=== PATIENT | female | born 1955 | race African-American/Black ===

== ENCOUNTER 2018-12-11 21:04 | Emergency (ER) | payer OTHER ==
[~2018-12-11] VITALS: Ht 175.3 cm; Wt 59.0 kg
[~2018-12-11 21:04] MED LIST: ASCO120G2 MC; FERR-71 MT; FOLI0.4T2 MT; FURO20TA4 MT; LACT1CAP68 MT; MULT-1146 MT; NITR0.4T49 SL; PANT40TA4 PO
[2018-12-11] MEDS ORDERED: DIPHENHYDRAMINE 50MG/ML VIAL IV ONE (23:30)
[2018-12-11 23:32] LABS: BASOPHILS % 1.5 % (0.0-2.0); EOSINOPHILS % 0.9 % (0.0-5.0); HEMATOCRIT. 42.3 % (36.0-48.0); HEMOGLOBIN. 13.6 g/dL (12.0-16.0); LYMPHOCYTES % 26.9 % (20.0-50.0); MEAN CORPUSCULAR VOLUME 87.4 fL (81.0-99.0); MONOCYTES % 8.9 % (2.0-8.0); NEUTROPHILS % 61.8 % (40.0-76.0); PLATELET 163 x1000/uL (130-400); RED BLOOD CELL COUNT 4.84 mill/uL (4.2-5.4); RED CELL DISTRIBUTION WIDTH 15.1 % (11.6-14.6)
[2018-12-11 23:42] LABS: CHLORIDE 103 mEq/L (98-107)
[2018-12-11 23:43] LABS: INR 1.3; PARTIAL THROMBOPLASTIN TIME 30.6 sec (23.4-31.0); PROTHROMBIN TIME 13.1 sec (9.6-11.0)
[2018-12-12] MEDS ORDERED: FUROSEMIDE 20MG/2ML VIAL IVP ONE (02:45)
[2018-12-12 05:04] VITALS: BP 93/63
== END 2018-12-12 05:06 | disposition short-term general hospital (02) ==
LOC: ER 22:06 → CANBEDREQ 12-12 06:06
DX: I50.9 Heart failure, unspecified (principal); I25.2 Old myocardial infarction; I48.91 Unspecified atrial fibrillation; K21.9 Gastro-esophageal reflux disease without esophagitis; Z86.718 Personal history of other venous thrombosis and embolism; Z87.891 Personal history of nicotine dependence
CPT/HCPCS: 36415; 71045; 80053; 83880; 84484; 85025; 85610; 85730; 93005; 96374; 99285; J1940

== ENCOUNTER 2019-03-12 11:45 | Inpatient (IN) | payer MEDICARE, OTHER ==
[~2019-03-12] VITALS: Ht 162.6 cm; Wt 58.5 kg
[2019-03-12] VITALS (34 sets, daily range): BP systolic 93–113; BP diastolic 64–79
[2019-03-12] MEDS ORDERED: SODIUM CHLORIDE 0.9% 1,000 ML IV ONE (11:48)
[2019-03-12] MEDS ORDERED: ALBUTEROL (0.083%) 2.5MG/3ML NEB HHN STA (11:59)
[2019-03-12] MEDS ORDERED: IPRATROPIUM BROMIDE (0.02%) 0.5MG/2.5ML NEB HHN STA (11:59)
[2019-03-12] MEDS ORDERED: METHYLPREDNISOLONE SOD SUCC 125 MG/2 ML VIAL IV STA (11:59)
[2019-03-12] MEDS ORDERED: LEVOFLOXACIN 250MG PREMIX 50 ML IV ONE (12:00)
[2019-03-12] MEDS ORDERED: MAGNESIUM 2 G PREMIX 50 ML IV ONE (12:00)
[2019-03-12 12:29] LABS: HEMATOCRIT. 35.2 % (36.0-48.0); HEMOGLOBIN. 11.2 g/dL (12.0-16.0); MEAN CORPUSCULAR HEMOGLOBIN 26.5 pg (28.0-32.0); MEAN CORPUSCULAR VOLUME 83.4 fL (81.0-99.0); MEAN PLATELET VOLUME 10.8 fl (7.4-10.4); PLATELET 216 x1000/uL (130-400); RED BLOOD CELL COUNT 4.22 mill/uL (4.2-5.4); RED CELL DISTRIBUTION WIDTH 24.8 % (11.6-14.6)
[2019-03-12] MEDS ORDERED: PIPERACILLIN/TAZ 3.375G PREMIX 50 ML IV ONE (12:30)
[2019-03-12] MEDS ORDERED: ETOMIDATE 2MG/ML 10ML VIAL IV ONE (12:30)
[2019-03-12] MEDS ORDERED: VANCOMYCIN 1 G PREMIX 200 ML IV ONE (12:30)
[2019-03-12] MEDS ORDERED: NOREPINEPHRINE 4 MG in DEXT 5% WATER 246 ML IV ONE (12:30)
[2019-03-12] MEDS ORDERED: MIDAZOLAM HCL 50 MG in DEXTROSE 5% WATER 40 ML IV ONE (12:30)
[2019-03-12] MEDS ORDERED: SODIUM CHLORIDE 0.9% 1000ML BAG (SEPSIS BOLUS) IV ONE (12:30)
[2019-03-12] MEDS ORDERED: SUCCINYLCHOLINE CHLORIDE 200MG/10ML IV ONE (12:30)
[2019-03-12 12:34] LABS: CHLORIDE 102 mEq/L (98-107)
[2019-03-12 12:35] LABS: INR 1.2; PROTHROMBIN TIME 12.8 sec (9.6-11.0)
[2019-03-12 12:38] LABS: ETHANOL BLOOD < 10 mg/dL
[2019-03-12] MEDS ORDERED: NOREPINEPHRINE 4MG/250ML PMX 250 ML IV ONE (12:41)
[2019-03-12 12:42] LABS: CLARITY URINE TURBID (CLEAR); COLOR URINE DARK YELLOW (YELLOW); KETONES URINE NEGATIVE (NEGATIVE); LEUKOCYTE ESTERASE URINE 3+ (NEGATIVE); NITRITE URINE NEGATIVE (NEGATIVE); OCCULT BLOOD URINE 2+ (NEGATIVE); PROTEIN URINE 2+ (NEGATIVE); SPECIFIC GRAVITY URINE 1.017 (1.005-1.030)
[2019-03-12 12:58] LABS: BG BASE EXCESS -5.4 mmol/L (-2.0-2.0); BG CARBOXYHEMOGLOBIN 0.6 % (0.5-1.5); BG DEOXYHEMOGLOBIN 0.1 % (0.0-5.0); BG FRACTION INSPIRED OXYGEN 100; BG HCO3 ACT 15.7 mmol/L (22.0-26.0); BG METHEMOGLOBIN 0.3 % (0.0-1.5); BG OXYGEN SATURATION 99.9 % (92.0-98.5); BG PCO2 19.9 mmHg (35.0-45.0); BG PH 7.516 (7.350-7.450); BG PO2 542.6 mmHg (75.0-100.0); BG SAMPLE SITE RIGHT FEMORAL; BG TIDAL VOLUME(mL) 500 mL; BG VENT MODE VENT - A/C; BG VENT RATE 12 set
[2019-03-12 13:10] LABS: *AMPHETAMINES SCREEN URINE NEGATIVE (NEGATIVE); *BARBITURATES SCREEN URINE NEGATIVE (NEGATIVE)
[2019-03-12 13:10] LABS: PLATELET ESTIMATE NORMAL
[2019-03-12 13:11] LABS: *BENZODIAZEPINES SCREEN URINE PRESUMTIVE POSITIVE (NEGATIVE); *COCAINE SCREEN URINE NEGATIVE (NEGATIVE); CANNABINOID URINE SCREEN NEGATIVE (NEGATIVE); METHADONE URINE SCREEN NEGATIVE (NEGATIVE); OPIATES URINE SCREEN PRESUMTIVE POSITIVE (NEGATIVE); PHENCYCLIDINE URINE SCREEN NEGATIVE (NEGATIVE)
[2019-03-12] MEDS ORDERED: FENTANYL CITRATE/PF 50MCG/ML 2ML VIAL IV ONE (13:15)
[2019-03-12] MEDS ORDERED: PROPOFOL 10MG/ML 100ML 100 ML IV SCH (13:45)
[2019-03-12] MEDS ORDERED: FENTANYL CITRATE/PF 500 MCG in SODIUM CHLORIDE 0.9% 40 ML IV PRN (15:15)
[2019-03-12] MEDS ORDERED: NOREPINEPHRINE 4 MG in DEXT 5% WATER 246 ML IV PRN (15:15)
[2019-03-12] MEDS ORDERED: MIDAZOLAM HCL 50 MG in DEXTROSE 5% WATER 40 ML IV PRN (15:15)
[2019-03-12] MEDS ORDERED: IPRATROPIUM/ALBUTEROL 0.5-3(2.5)MG/3ML NEB HHN PRN (15:15)
[2019-03-12] MEDS ORDERED: PHENYLEPHRINE 10 MG in DEXT 5% WATER 249 ML IV PRN (15:15)
[2019-03-12] MEDS: ENOXAPARIN 30MG/0.3ML SYR SUBCUT SCH (17:28)
[2019-03-12] MEDS: FAMOTIDINE 20MG/2ML VIAL IV SCH (17:28)
[2019-03-12] MEDS ORDERED: DOCUSATE SODIUM 100MG CAPSULE PO PRN (17:45)
[2019-03-12] MEDS ORDERED: MAGNESIUM/ALUMINUM HYDROXIDE/SIMETHICONE 30ML UDC PO PRN (17:45)
[2019-03-12] MEDS ORDERED: NA PHOS,M-B/NA PHOS,DI-BA ENEMA 118ML PR PRN (17:45)
[2019-03-12] MEDS ORDERED: GUAIFENESIN 200MG/10ML SUGAR FREE UDC PO PRN (17:45)
[2019-03-12] MEDS ORDERED: CLONIDINE 0.1MG TABLET PO PRN (17:45)
[2019-03-12] MEDS: PIPERACILLIN/TAZOBACTAM 2.25 G in DEXTROSE 5% WATER 50 ML IV SCH (18:42)
[2019-03-12] MEDS: SODIUM CHLORIDE 0.9% INJ 3ML FLUSH IVF SCH (22:07)
[2019-03-13] VITALS (46 sets, daily range): BP systolic 86–113; BP diastolic 59–77
[2019-03-13] MEDS ORDERED: DEXT 5%/0.45% NACL 1000ML 1,000 ML IV SCH
[2019-03-13] MEDS: IPRATROPIUM/ALBUTEROL 0.5-3(2.5)MG/3ML NEB HHN SCH ×6 (00:42→20:28)
[2019-03-13] MEDS: PIPERACILLIN/TAZOBACTAM 2.25 G in DEXTROSE 5% WATER 50 ML IV SCH ×4 (01:07→18:41)
[2019-03-13 01:38] LABS: CREATINE KINASE 25 IU/L (26-192)
[2019-03-13 01:40] LABS: CREATINE KINASE MB FRACTION < 1.0 ng/mL (0.5-3.6)
[2019-03-13 05:48] LABS: HEMATOCRIT. 30.9 % (36.0-48.0); MEAN CORPUSCULAR HEMOGLOBIN 26.6 pg (28.0-32.0); MEAN CORPUSCULAR VOLUME 82.2 fL (81.0-99.0); MEAN PLATELET VOLUME 10.3 fl (7.4-10.4); PLATELET 193 x1000/uL (130-400); RED BLOOD CELL COUNT 3.76 mill/uL (4.2-5.4); RED CELL DISTRIBUTION WIDTH 24.7 % (11.6-14.6)
[2019-03-13 06:06] LABS: CHLORIDE 105 mEq/L (98-107)
[2019-03-13 06:18] LABS: CREATINE KINASE 33 IU/L (26-192)
[2019-03-13 06:20] LABS: CREATINE KINASE MB FRACTION 1.5 ng/mL (0.5-3.6)
[2019-03-13] MEDS: SODIUM CHLORIDE 0.9% INJ 3ML FLUSH IVF SCH (06:44)
[2019-03-13] MEDS: FAMOTIDINE 20MG/2ML VIAL IV SCH (09:08)
[2019-03-13] MEDS: ASPIRIN 81MG EC TABLET PO SCH (09:08)
[2019-03-13] MEDS: VANCOMYCIN 750 MG PREMIX 150 ML IV SCH (09:09)
[2019-03-13 09:30] LABS: BG BASE EXCESS -4.8 mmol/L (-2.0-2.0); BG CARBOXYHEMOGLOBIN 0.8 % (0.5-1.5); BG DEOXYHEMOGLOBIN 0.6 % (0.0-5.0); BG FRACTION INSPIRED OXYGEN 40; BG HCO3 ACT 18.3 mmol/L (22.0-26.0); BG METHEMOGLOBIN 0.4 % (0.0-1.5); BG OXYGEN SATURATION 99.4 % (92.0-98.5); BG OXYHEMOGLOBIN 98.2 % (94.0-97.0); BG PCO2 27.7 mmHg (35.0-45.0); BG PH 7.437 (7.350-7.450); BG PO2 204.8 mmHg (75.0-100.0); BG SAMPLE SITE RIGHT BRACHIAL; BG TIDAL VOLUME(mL) 450 mL; BG TOTAL HEMOGLOBIN 10.9 g/dL (12.0-18.0); BG VENT MODE VENT - A/C; BG VENT RATE 12 set
[2019-03-13] MEDS ORDERED: SODIUM CHLORIDE 0.9% 500 ML IV ONE ×2 (09:30→18:00)
[2019-03-13] MEDS ORDERED: FUROSEMIDE 40MG/4ML VIAL IVP SCH (09:30)
[2019-03-13 10:05] LABS: PLATELET ESTIMATE NORMAL
[2019-03-13] MEDS: ENOXAPARIN 30MG/0.3ML SYR SUBCUT SCH (17:29)
[2019-03-13] MEDS: SODIUM CHLORIDE 0.9% 1,000 ML IV SCH (17:57)
[2019-03-13] MEDS: MICAFUNGIN 100MG in NORMAL SALINE 100ML IV SCH (18:41)
[2019-03-14] VITALS (59 sets, daily range): BP systolic 77–99; BP diastolic 55–77
[2019-03-14] MEDS: IPRATROPIUM/ALBUTEROL 0.5-3(2.5)MG/3ML NEB HHN SCH ×6 (00:38→19:51)
[2019-03-14] MEDS: PIPERACILLIN/TAZOBACTAM 2.25 G in DEXTROSE 5% WATER 50 ML IV SCH ×4 (01:09→17:09)
[2019-03-14] MEDS: DIPHENHYDRAMINE 50MG/ML VIAL IV PRN (03:07)
[2019-03-14] MEDS: VANCOMYCIN 750 MG PREMIX 150 ML IV SCH ×2 (03:31→21:01)
[2019-03-14] MEDS: LORAZEPAM 2MG/ML CPJ IV PRN ×2 (04:44→17:28)
[2019-03-14 05:33] LABS: BASOPHILS % 0.1 % (0.0-2.0); HEMATOCRIT. 38.2 % (36.0-48.0); LYMPHOCYTES % 10.7 % (20.0-50.0); MEAN CORPUSCULAR HEMOGLOBIN 26.7 pg (28.0-32.0); MEAN CORPUSCULAR VOLUME 85.3 fL (81.0-99.0); MEAN PLATELET VOLUME 9.7 fl (7.4-10.4); MONOCYTES % 6.3 % (2.0-8.0); NEUTROPHILS % 82.9 % (40.0-76.0); PLATELET 191 x1000/uL (130-400); RED BLOOD CELL COUNT 4.48 mill/uL (4.2-5.4); RED CELL DISTRIBUTION WIDTH 25.1 % (11.6-14.6)
[2019-03-14 07:53] LABS: BG BASE EXCESS -6.3 mmol/L (-2.0-2.0); BG DEOXYHEMOGLOBIN 0.6 % (0.0-5.0); BG HCO3 ACT 17.2 mmol/L (22.0-26.0); BG METHEMOGLOBIN 0.3 % (0.0-1.5); BG OXYGEN SATURATION 99.4 % (92.0-98.5); BG OXYHEMOGLOBIN 99.1 % (94.0-97.0); BG PH 7.405 (7.350-7.450); BG PO2 176.3 mmHg (75.0-100.0); BG SAMPLE SITE RIGHT RADIAL; BG TIDAL VOLUME(mL) 450 mL; BG TOTAL HEMOGLOBIN 11.2 g/dL (12.0-18.0); BG VENT MODE VENT - A/C; BG VENT RATE 12 set
[2019-03-14 08:35] LABS: CHLORIDE 105 mEq/L (98-107)
[2019-03-14] MEDS: ASPIRIN 81MG EC TABLET PO SCH (08:38)
[2019-03-14] MEDS: FAMOTIDINE 20MG/2ML VIAL IV SCH (08:38)
[2019-03-14 08:42] LABS: PHOSPHORUS 3.9 mg/dL (2.5-4.9)
[2019-03-14] MEDS ORDERED: FUROSEMIDE 40MG/4ML VIAL IVP SCH (09:00)
[2019-03-14] MEDS: SODIUM CHLORIDE 0.9% 1,000 ML IV SCH (12:37)
[2019-03-14] MEDS ORDERED: ISOS5TAB4 PO (15:00)
[2019-03-14] MEDS ORDERED: DOCU-138 PO (15:00)
[2019-03-14] MEDS ORDERED: CARV3.1242 PO (15:00)
[2019-03-14] MEDS ORDERED: FURO20TA4 PO (15:00)
[2019-03-14] MEDS ORDERED: ALPR-339 PO (15:00)
[2019-03-14] MEDS: ENOXAPARIN 30MG/0.3ML SYR SUBCUT SCH (17:09)
[2019-03-14] MEDS: MICAFUNGIN 100MG in NORMAL SALINE 100ML IV SCH (17:09)
[2019-03-14] MEDS ORDERED: VANCOMYCIN 750 MG PREMIX 150 ML IV SCH (23:00)
[2019-03-15] VITALS (44 sets, daily range): BP systolic 82–107; BP diastolic 59–78
[2019-03-15] MEDS: IPRATROPIUM/ALBUTEROL 0.5-3(2.5)MG/3ML NEB HHN SCH ×7 (00:45→23:58)
[2019-03-15] MEDS: PIPERACILLIN/TAZOBACTAM 2.25 G in DEXTROSE 5% WATER 50 ML IV SCH ×4 (01:05→18:51)
[2019-03-15] MEDS: SODIUM CHLORIDE 0.9% 1,000 ML IV SCH ×2 (01:10→12:30)
[2019-03-15 05:35] LABS: HEMATOCRIT. 32.6 % (36.0-48.0); HEMOGLOBIN. 10.3 g/dL (12.0-16.0); MEAN CORPUSCULAR HEMOGLOBIN 26.4 pg (28.0-32.0); MEAN CORPUSCULAR VOLUME 83.5 fL (81.0-99.0); MEAN PLATELET VOLUME 9.2 fl (7.4-10.4); PLATELET 185 x1000/uL (130-400); RED CELL DISTRIBUTION WIDTH 25.2 % (11.6-14.6)
[2019-03-15 05:44] LABS: CHLORIDE 112 mEq/L (98-107)
[2019-03-15 05:50] LABS: PHOSPHORUS 2.3 mg/dL (2.5-4.9)
[2019-03-15 09:10] LABS: BG BASE EXCESS -5.7 mmol/L (-2.0-2.0); BG CARBOXYHEMOGLOBIN 0.2 % (0.5-1.5); BG DEOXYHEMOGLOBIN 0.7 % (0.0-5.0); BG FRACTION INSPIRED OXYGEN 40; BG HCO3 ACT 17.1 mmol/L (22.0-26.0); BG METHEMOGLOBIN 0.3 % (0.0-1.5); BG OXYGEN SATURATION 99.3 % (92.0-98.5); BG OXYHEMOGLOBIN 98.8 % (94.0-97.0); BG PCO2 25.6 mmHg (35.0-45.0); BG PH 7.442 (7.350-7.450); BG PO2 176.2 mmHg (75.0-100.0); BG SAMPLE SITE RIGHT RADIAL; BG TIDAL VOLUME(mL) 450 mL; BG TOTAL HEMOGLOBIN 11.3 g/dL (12.0-18.0); BG VENT MODE VENT - A/C; BG VENT RATE 12 set
[2019-03-15 09:19] LABS: NUCLEATED RED BLOOD CELLS 1 /100 WBC
[2019-03-15 09:20] LABS: PLATELET ESTIMATE NORMAL
[2019-03-15] MEDS: VANCOMYCIN 750 MG PREMIX 150 ML IV SCH ×2 (09:25→21:35)
[2019-03-15] MEDS: ASPIRIN 81MG EC TABLET PO SCH (09:25)
[2019-03-15] MEDS: FAMOTIDINE 20MG/2ML VIAL IV SCH (09:25)
[2019-03-15 13:06] LABS: *CREATININE RANDOM URINE 56.9 mg/dL (Not Estab.); MICROALBUMIN RANDOM URINE 166.5 ug/mL (Not Estab.)
[2019-03-15] MEDS ORDERED: SODIUM PHOS,M-BASIC-D-BASIC 15 MM in DEXT 5% WATER 245 ML IV SCH (14:00)
[2019-03-15] MEDS: FLUCONAZOLE 200 MG/100ML BAG 200 MG in BAG 1 EACH IV SCH (16:36)
[2019-03-15] MEDS: MORPHINE SULFATE 2 MG/ML CPJ (NOT FOR IM USE) IV PRN (17:08)
[2019-03-15] MEDS: ENOXAPARIN 30MG/0.3ML SYR SUBCUT SCH (17:09)
[2019-03-16] VITALS (34 sets, daily range): BP systolic 89–111; BP diastolic 62–78
[2019-03-16] MEDS: PIPERACILLIN/TAZOBACTAM 2.25 G in DEXTROSE 5% WATER 50 ML IV SCH ×4 (00:03→18:29)
[2019-03-16] MEDS: MORPHINE SULFATE 2 MG/ML CPJ (NOT FOR IM USE) IV PRN ×3 (00:04→20:51)
[2019-03-16] MEDS: IPRATROPIUM/ALBUTEROL 0.5-3(2.5)MG/3ML NEB HHN SCH ×6 (03:34→23:53)
[2019-03-16 05:27] LABS: EOSINOPHILS % 0.6 % (0.0-5.0); HEMATOCRIT. 30.5 % (36.0-48.0); HEMOGLOBIN. 9.7 g/dL (12.0-16.0); LYMPHOCYTES % 25.7 % (20.0-50.0); MEAN CORPUSCULAR HEMOGLOBIN 26.5 pg (28.0-32.0); MEAN CORPUSCULAR VOLUME 83.6 fL (81.0-99.0); MONOCYTES % 10.4 % (2.0-8.0); NEUTROPHILS % 62.3 % (40.0-76.0); PLATELET 188 x1000/uL (130-400); RED BLOOD CELL COUNT 3.65 mill/uL (4.2-5.4); RED CELL DISTRIBUTION WIDTH 25.1 % (11.6-14.6)
[2019-03-16 05:34] LABS: CHLORIDE 112 mEq/L (98-107)
[2019-03-16 05:51] LABS: PHOSPHORUS 2.2 mg/dL (2.5-4.9)
[2019-03-16] MEDS: FAMOTIDINE 20MG/2ML VIAL IV SCH (08:35)
[2019-03-16] MEDS: VANCOMYCIN 750 MG PREMIX 150 ML IV SCH (08:35)
[2019-03-16] MEDS: ASPIRIN 81MG EC TABLET PO SCH (08:36)
[2019-03-16 11:16] LABS: BG BASE EXCESS -6.1 mmol/L (-2.0-2.0); BG CARBOXYHEMOGLOBIN 0.4 % (0.5-1.5); BG CPAP (cmH2O) 0 cm(H2O); BG DEOXYHEMOGLOBIN 1.3 % (0.0-5.0); BG HCO3 ACT 16.5 mmol/L (22.0-26.0); BG METHEMOGLOBIN 0.2 % (0.0-1.5); BG OXYGEN SATURATION 98.7 % (92.0-98.5); BG OXYHEMOGLOBIN 98.1 % (94.0-97.0); BG PCO2 24.8 mmHg (35.0-45.0); BG PH 7.442 (7.350-7.450); BG PO2 128.2 mmHg (75.0-100.0); BG SAMPLE SITE RIGHT RADIAL; BG TOTAL HEMOGLOBIN 11.2 g/dL (12.0-18.0); BG VENT MODE VENT - CPAP
[2019-03-16] MEDS ORDERED: POTASSIUM PHOS,M-BASIC-D-BASIC 20 MMOL in DEXT 5% WATER 250 ML IV SCH (15:00)
[2019-03-16] MEDS: FLUCONAZOLE 200 MG/100ML BAG 200 MG in BAG 1 EACH IV SCH (15:20)
[2019-03-16] MEDS: ENOXAPARIN 30MG/0.3ML SYR SUBCUT SCH (18:29)
[2019-03-16] MEDS: SODIUM CHLORIDE 0.9% 1,000 ML IV SCH (19:45)
[2019-03-17] VITALS (37 sets, daily range): BP systolic 90–108; BP diastolic 50–76
[2019-03-17] MEDS: VANCOMYCIN 500 MG PREMIX 100 ML IV SCH ×3 (00:14→23:18)
[2019-03-17] MEDS: PIPERACILLIN/TAZOBACTAM 2.25 G in DEXTROSE 5% WATER 50 ML IV SCH ×3 (01:00→13:29)
[2019-03-17] MEDS: ONDANSETRON HCL 4MG/2ML INJ IV PRN (02:41)
[2019-03-17] MEDS: MORPHINE SULFATE 2 MG/ML CPJ (NOT FOR IM USE) IV PRN ×2 (03:34→10:38)
[2019-03-17] MEDS: IPRATROPIUM/ALBUTEROL 0.5-3(2.5)MG/3ML NEB HHN SCH ×5 (04:07→20:44)
[2019-03-17 06:20] LABS: BASOPHILS % 0.4 % (0.0-2.0); EOSINOPHILS % 1.6 % (0.0-5.0); HEMATOCRIT. 32.9 % (36.0-48.0); HEMOGLOBIN. 10.4 g/dL (12.0-16.0); LYMPHOCYTES % 21.9 % (20.0-50.0); MEAN CORPUSCULAR HEMOGLOBIN 26.6 pg (28.0-32.0); MEAN CORPUSCULAR VOLUME 84.2 fL (81.0-99.0); MONOCYTES % 11.9 % (2.0-8.0); NEUTROPHILS % 64.2 % (40.0-76.0); PLATELET 198 x1000/uL (130-400); RED BLOOD CELL COUNT 3.91 mill/uL (4.2-5.4); RED CELL DISTRIBUTION WIDTH 25.2 % (11.6-14.6)
[2019-03-17 06:46] LABS: CHLORIDE 113 mEq/L (98-107)
[2019-03-17 06:52] LABS: PHOSPHORUS 3.1 mg/dL (2.5-4.9)
[2019-03-17] MEDS: FAMOTIDINE 20MG/2ML VIAL IV SCH (08:45)
[2019-03-17] MEDS: ASPIRIN 81MG EC TABLET PO SCH (10:37)
[2019-03-17] MEDS: FLUCONAZOLE 200 MG/100ML BAG 200 MG in BAG 1 EACH IV SCH (14:27)
[2019-03-17] MEDS: ENOXAPARIN 40MG/0.4ML SYR SUBCUT SCH (16:31)
[2019-03-17] MEDS: PIPERACILLIN/TAZOBACTAM 3.375 G in DEXT 5% WATER 100 ML IV SCH (18:30)
[2019-03-18] VITALS (11 sets, daily range): BP systolic 101–135; BP diastolic 56–86
[2019-03-18] MEDS: IPRATROPIUM/ALBUTEROL 0.5-3(2.5)MG/3ML NEB HHN SCH ×7 (00:58→23:49)
[2019-03-18] MEDS: PIPERACILLIN/TAZOBACTAM 3.375 G in DEXT 5% WATER 100 ML IV SCH ×4 (01:09→18:15)
[2019-03-18 07:47] LABS: BASOPHILS % 0.7 % (0.0-2.0); EOSINOPHILS % 0.9 % (0.0-5.0); HEMATOCRIT. 34.3 % (36.0-48.0); HEMOGLOBIN. 10.8 g/dL (12.0-16.0); LYMPHOCYTES % 18.6 % (20.0-50.0); MEAN CORPUSCULAR HEMOGLOBIN 26.5 pg (28.0-32.0); MEAN PLATELET VOLUME 9.5 fl (7.4-10.4); MONOCYTES % 9.9 % (2.0-8.0); NEUTROPHILS % 69.9 % (40.0-76.0); PLATELET 235 x1000/uL (130-400); RED BLOOD CELL COUNT 4.09 mill/uL (4.2-5.4)
[2019-03-18] MEDS ORDERED: FUROSEMIDE 20MG/2ML VIAL IVP NR (08:15)
[2019-03-18 08:16] LABS: CHLORIDE 110 mEq/L (98-107)
[2019-03-18 08:22] LABS: BG BASE EXCESS -9.6 mmol/L (-2.0-2.0); BG BILEVEL POS AIRWAY PRESSURE 15/5; BG CARBOXYHEMOGLOBIN 0.5 % (0.5-1.5); BG DEOXYHEMOGLOBIN 1.1 % (0.0-5.0); BG FRACTION INSPIRED OXYGEN 35; BG HCO3 ACT 13.3 mmol/L (22.0-26.0); BG METHEMOGLOBIN 0.3 % (0.0-1.5); BG OXYGEN SATURATION 98.9 % (92.0-98.5); BG OXYHEMOGLOBIN 98.1 % (94.0-97.0); BG PCO2 21.9 mmHg (35.0-45.0); BG PO2 134.6 mmHg (75.0-100.0); BG SAMPLE SITE RIGHT RADIAL; BG TOTAL HEMOGLOBIN 11.7 g/dL (12.0-18.0); BG VENT MODE MASK - BIPAP; BG VENT RATE 16 set
[2019-03-18 08:28] LABS: PHOSPHORUS 3.9 mg/dL (2.5-4.9)
[2019-03-18] MEDS: FAMOTIDINE 20MG/2ML VIAL IV SCH (08:30)
[2019-03-18] MEDS: ASPIRIN 81MG EC TABLET PO SCH (08:30)
[2019-03-18] MEDS: THIAMINE HCL 100MG TABLET PO SCH (08:31)
[2019-03-18] MEDS: FOLIC ACID 1MG TABLET PO SCH (08:32)
[2019-03-18] MEDS: VANCOMYCIN 500 MG PREMIX 100 ML IV SCH ×2 (10:59→23:12)
[2019-03-18] MEDS: FLUCONAZOLE 200 MG/100ML BAG 100 ML IV SCH (14:58)
[2019-03-18] MEDS: ENOXAPARIN 40MG/0.4ML SYR SUBCUT SCH (18:14)
[2019-03-18] MEDS ORDERED: SORBITOL 70% SOLN 30ML PO NR (18:30)
[2019-03-18] MEDS ORDERED: BISACODYL 10MG SUPP PR NR (18:45)
[2019-03-19] VITALS (12 sets, daily range): BP systolic 94–117; BP diastolic 60–77
[2019-03-19] MEDS: PIPERACILLIN/TAZOBACTAM 3.375 G in DEXT 5% WATER 100 ML IV SCH ×4 (00:39→18:12)
[2019-03-19] MEDS: IPRATROPIUM/ALBUTEROL 0.5-3(2.5)MG/3ML NEB HHN SCH ×5 (04:18→20:23)
[2019-03-19 06:40] LABS: EOSINOPHILS % 0.8 % (0.0-5.0); HEMATOCRIT. 34.1 % (36.0-48.0); HEMOGLOBIN. 10.7 g/dL (12.0-16.0); LYMPHOCYTES % 19.2 % (20.0-50.0); MEAN CORPUSCULAR HEMOGLOBIN 26.8 pg (28.0-32.0); MEAN CORPUSCULAR VOLUME 85.5 fL (81.0-99.0); MEAN PLATELET VOLUME 9.3 fl (7.4-10.4); MONOCYTES % 9.1 % (2.0-8.0); NEUTROPHILS % 69.9 % (40.0-76.0); PLATELET 229 x1000/uL (130-400); RED BLOOD CELL COUNT 3.98 mill/uL (4.2-5.4)
[2019-03-19] MEDS: FOLIC ACID 1MG TABLET PO SCH (08:27)
[2019-03-19] MEDS: FAMOTIDINE 20MG/2ML VIAL IV SCH (08:27)
[2019-03-19] MEDS: THIAMINE HCL 100MG TABLET PO SCH (08:27)
[2019-03-19] MEDS: ASPIRIN 81MG EC TABLET PO SCH (08:28)
[2019-03-19 08:31] LABS: CHLORIDE 111 mEq/L (98-107)
[2019-03-19 08:49] LABS: PHOSPHORUS 3.6 mg/dL (2.5-4.9)
[2019-03-19] MEDS: VANCOMYCIN 500 MG PREMIX 100 ML IV SCH (10:02)
[2019-03-19] MEDS: ONDANSETRON HCL 4MG/2ML INJ IV PRN (10:17)
[2019-03-19] MEDS: FLUCONAZOLE 200 MG/100ML BAG 100 ML IV SCH (15:10)
[2019-03-19] MEDS: ENOXAPARIN 40MG/0.4ML SYR SUBCUT SCH (17:00)
[2019-03-19 17:06] LABS: BG BASE EXCESS -7.1 mmol/L (-2.0-2.0); BG BILEVEL POS AIRWAY PRESSURE 15/5; BG CARBOXYHEMOGLOBIN 0.7 % (0.5-1.5); BG DEOXYHEMOGLOBIN 1.1 % (0.0-5.0); BG FRACTION INSPIRED OXYGEN 35; BG HCO3 ACT 16.9 mmol/L (22.0-26.0); BG METHEMOGLOBIN 0.3 % (0.0-1.5); BG OXYGEN SATURATION 98.9 % (92.0-98.5); BG OXYHEMOGLOBIN 97.9 % (94.0-97.0); BG PCO2 29.4 mmHg (35.0-45.0); BG PH 7.378 (7.350-7.450); BG PO2 149.9 mmHg (75.0-100.0); BG SAMPLE SITE RIGHT RADIAL; BG VENT MODE MASK - BIPAP; BG VENT RATE 16 set
[2019-03-20] VITALS (12 sets, daily range): BP systolic 97–121; BP diastolic 53–83
[2019-03-20] MEDS: IPRATROPIUM/ALBUTEROL 0.5-3(2.5)MG/3ML NEB HHN SCH ×6 (00:03→21:33)
[2019-03-20] MEDS: VANCOMYCIN 500 MG PREMIX 100 ML IV SCH (00:09)
[2019-03-20 08:23] LABS: HEMATOCRIT. 31.3 % (36.0-48.0); HEMOGLOBIN. 9.9 g/dL (12.0-16.0); MEAN CORPUSCULAR HEMOGLOBIN 26.5 pg (28.0-32.0); MEAN CORPUSCULAR VOLUME 84.1 fL (81.0-99.0); MEAN PLATELET VOLUME 9.3 fl (7.4-10.4); PLATELET 238 x1000/uL (130-400); RED BLOOD CELL COUNT 3.72 mill/uL (4.2-5.4); RED CELL DISTRIBUTION WIDTH 25.3 % (11.6-14.6)
[2019-03-20 08:45] LABS: CHLORIDE 112 mEq/L (98-107)
[2019-03-20] MEDS: THIAMINE HCL 100MG TABLET PO SCH (08:57)
[2019-03-20] MEDS: ASPIRIN 81MG EC TABLET PO SCH (08:57)
[2019-03-20 08:58] LABS: PHOSPHORUS 3.7 mg/dL (2.5-4.9)
[2019-03-20] MEDS: FAMOTIDINE 20MG/2ML VIAL IV SCH (08:58)
[2019-03-20] MEDS ORDERED: POTASSIUM CHLORIDE 10MEQ TABLET SR PO SCH (09:00)
[2019-03-20] MEDS: FOLIC ACID 1MG TABLET PO SCH (09:05)
[2019-03-20] MEDS: FUROSEMIDE 40MG/4ML VIAL IVP SCH ×2 (09:06→17:22)
[2019-03-20 09:35] LABS: PLATELET ESTIMATE NORMAL
[2019-03-20] MEDS: FLUCONAZOLE 200 MG/100ML BAG 100 ML IV SCH (15:24)
[2019-03-20] MEDS: ENOXAPARIN 40MG/0.4ML SYR SUBCUT SCH (17:22)
[2019-03-21] VITALS (57 sets, daily range): BP systolic 94–124; BP diastolic 53–79
[2019-03-21] MEDS: IPRATROPIUM/ALBUTEROL 0.5-3(2.5)MG/3ML NEB HHN SCH ×6 (01:00→20:59)
[2019-03-21 08:05] LABS: HEMATOCRIT. 38.2 % (36.0-48.0); MEAN CORPUSCULAR HEMOGLOBIN 26.4 pg (28.0-32.0); MEAN CORPUSCULAR VOLUME 91.3 fL (81.0-99.0); PLATELET 174 x1000/uL (130-400); RED BLOOD CELL COUNT 4.19 mill/uL (4.2-5.4); RED CELL DISTRIBUTION WIDTH 26.4 % (11.6-14.6)
[2019-03-21] MEDS: FOLIC ACID 1MG TABLET PO SCH (09:00)
[2019-03-21] MEDS: ASPIRIN 81MG EC TABLET PO SCH (09:00)
[2019-03-21] MEDS: THIAMINE HCL 100MG TABLET PO SCH (09:00)
[2019-03-21] MEDS: FAMOTIDINE 20MG/2ML VIAL IV SCH (09:00)
[2019-03-21] MEDS ORDERED: DEXTROSE 50% WATER 50ML SYRINGE IV NR (09:15)
[2019-03-21] MEDS: DOBUTAMINE 250MG PREMIX 250 ML IV SCH (10:42)
[2019-03-21 10:52] LABS: CHLORIDE 119 mEq/L (98-107)
[2019-03-21 10:55] LABS: BG BASE EXCESS -19.2 mmol/L (-2.0-2.0); BG BILEVEL POS AIRWAY PRESSURE 15/5; BG CARBOXYHEMOGLOBIN 0.7 % (0.5-1.5); BG DEOXYHEMOGLOBIN 0.3 % (0.0-5.0); BG FRACTION INSPIRED OXYGEN 100; BG HCO3 ACT 5.7 mmol/L (22.0-26.0); BG METHEMOGLOBIN 0.3 % (0.0-1.5); BG OXYGEN SATURATION 99.7 % (92.0-98.5); BG OXYHEMOGLOBIN 98.7 % (94.0-97.0); BG PCO2 13.6 mmHg (35.0-45.0); BG PH 7.242 (7.350-7.450); BG PO2 441.1 mmHg (75.0-100.0); BG SAMPLE SITE RIGHT RADIAL; BG TOTAL HEMOGLOBIN 11.4 g/dL (12.0-18.0); BG VENT MODE MASK - BIPAP
[2019-03-21 10:57] LABS: PHOSPHORUS 5.1 mg/dL (2.5-4.9)
[2019-03-21] MEDS ORDERED: SODIUM BICARBONATE 8.4% 1 MEQ/ML 50ML SYR IV NR ×2 (11:00→13:00)
[2019-03-21 12:02] LABS: NUCLEATED RED BLOOD CELLS 3 /100 WBC; PLATELET ESTIMATE NORMAL
[2019-03-21 12:27] LABS: BG BASE EXCESS -15.3 mmol/L (-2.0-2.0); BG BILEVEL POS AIRWAY PRESSURE 15/5; BG CARBOXYHEMOGLOBIN 0.3 % (0.5-1.5); BG DEOXYHEMOGLOBIN 0.4 % (0.0-5.0); BG FRACTION INSPIRED OXYGEN 60; BG HCO3 ACT 9.4 mmol/L (22.0-26.0); BG METHEMOGLOBIN 0.4 % (0.0-1.5); BG OXYGEN SATURATION 99.6 % (92.0-98.5); BG OXYHEMOGLOBIN 98.9 % (94.0-97.0); BG PCO2 20.1 mmHg (35.0-45.0); BG PH 7.288 (7.350-7.450); BG PO2 286.5 mmHg (75.0-100.0); BG SAMPLE SITE RIGHT RADIAL; BG TOTAL HEMOGLOBIN 10.3 g/dL (12.0-18.0); BG VENT MODE MASK - BIPAP; BG VENT RATE 16 set
[2019-03-21] MEDS: PIPERACILLIN/TAZOBACTAM 3.375 G in DEXT 5% WATER 100 ML IV SCH ×2 (13:32→18:28)
[2019-03-21] MEDS ORDERED: SODIUM BICARBONATE 100 MEQ in DEXTROSE 5% WATER 1,000 ML IV SCH (14:00)
[2019-03-21] MEDS: FLUCONAZOLE 200 MG/100ML BAG 100 ML IV SCH (15:40)
[2019-03-21 15:41] LABS: BG BASE EXCESS -10.3 mmol/L (-2.0-2.0); BG BILEVEL POS AIRWAY PRESSURE 15/5; BG CARBOXYHEMOGLOBIN 0.3 % (0.5-1.5); BG FRACTION INSPIRED OXYGEN 40; BG HCO3 ACT 13.7 mmol/L (22.0-26.0); BG METHEMOGLOBIN 0.3 % (0.0-1.5); BG OXYHEMOGLOBIN 98.4 % (94.0-97.0); BG PH 7.358 (7.350-7.450); BG SAMPLE SITE RIGHT RADIAL; BG TOTAL HEMOGLOBIN 10.3 g/dL (12.0-18.0); BG VENT MODE MASK - BIPAP
[2019-03-21] MEDS: ENOXAPARIN 40MG/0.4ML SYR SUBCUT SCH (17:26)
[2019-03-21] MEDS ORDERED: DEXTROSE 50% WATER 50ML SYRINGE IV PRN (19:45)
[2019-03-21 20:01] LABS: CLARITY URINE TURBID (CLEAR); COLOR URINE DARK YELLOW (YELLOW); KETONES URINE TRACE (NEGATIVE); LEUKOCYTE ESTERASE URINE 2+ (NEGATIVE); NITRITE URINE NEGATIVE (NEGATIVE); OCCULT BLOOD URINE 3+ (NEGATIVE); PROTEIN URINE 3+ (NEGATIVE); SPECIFIC GRAVITY URINE 1.026 (1.005-1.030)
[2019-03-22] VITALS (94 sets, daily range): BP systolic 92–121; BP diastolic 56–76
[2019-03-22] MEDS: PIPERACILLIN/TAZOBACTAM 3.375 G in DEXT 5% WATER 100 ML IV SCH ×3 (00:10→12:48)
[2019-03-22] MEDS: DOBUTAMINE 250MG PREMIX 250 ML IV SCH ×2 (00:11→15:03)
[2019-03-22] MEDS: IPRATROPIUM/ALBUTEROL 0.5-3(2.5)MG/3ML NEB HHN SCH ×6 (00:21→21:04)
[2019-03-22 04:35] LABS: BASOPHILS % 0.1 % (0.0-2.0); HEMATOCRIT. 29.9 % (36.0-48.0); HEMOGLOBIN. 9.4 g/dL (12.0-16.0); LYMPHOCYTES % 8.1 % (20.0-50.0); MEAN CORPUSCULAR HEMOGLOBIN 26.4 pg (28.0-32.0); MEAN CORPUSCULAR VOLUME 83.7 fL (81.0-99.0); MEAN PLATELET VOLUME 9.1 fl (7.4-10.4); MONOCYTES % 5.3 % (2.0-8.0); NEUTROPHILS % 86.5 % (40.0-76.0); PLATELET 184 x1000/uL (130-400); RED BLOOD CELL COUNT 3.57 mill/uL (4.2-5.4); RED CELL DISTRIBUTION WIDTH 25.2 % (11.6-14.6)
[2019-03-22 04:44] LABS: CHLORIDE 110 mEq/L (98-107)
[2019-03-22 04:53] LABS: PHOSPHORUS 4.7 mg/dL (2.5-4.9)
[2019-03-22 08:59] LABS: BG BASE EXCESS -1.8 mmol/L (-2.0-2.0); BG BILEVEL POS AIRWAY PRESSURE 15/5; BG CARBOXYHEMOGLOBIN 0.3 % (0.5-1.5); BG DEOXYHEMOGLOBIN 1.4 % (0.0-5.0); BG FRACTION INSPIRED OXYGEN 30; BG HCO3 ACT 21.5 mmol/L (22.0-26.0); BG METHEMOGLOBIN 0.3 % (0.0-1.5); BG OXYGEN SATURATION 98.6 % (92.0-98.5); BG PCO2 31.3 mmHg (35.0-45.0); BG PH 7.455 (7.350-7.450); BG PO2 145.5 mmHg (75.0-100.0); BG SAMPLE SITE RIGHT RADIAL; BG TOTAL HEMOGLOBIN 10.1 g/dL (12.0-18.0); BG VENT MODE MASK - BIPAP; BG VENT RATE 16 set
[2019-03-22] MEDS: FAMOTIDINE 20MG/2ML VIAL IV SCH (09:06)
[2019-03-22] MEDS: ASPIRIN 81MG EC TABLET PO SCH (09:19)
[2019-03-22] MEDS: FOLIC ACID 1MG TABLET PO SCH (09:19)
[2019-03-22] MEDS: THIAMINE HCL 100MG TABLET PO SCH (09:19)
[2019-03-22 10:55] LABS: AMYLASE 94 IU/L (25-115)
[2019-03-22] MEDS: DEXT 5%/0.9% NACL 1,000 ML IV SCH (11:45)
[2019-03-22 13:01] LABS: T4 FREE 1.05 ng/dL (0.76-1.46)
[2019-03-22] MEDS: METOCLOPRAMIDE HCL 10MG/2ML VIAL IV SCH ×2 (17:27→23:20)
[2019-03-22] MEDS: ENOXAPARIN 30MG/0.3ML SYR SUBCUT SCH (17:27)
[2019-03-22] MEDS: PIPERACILLIN/TAZOBACTAM 2.25 G in DEXTROSE 5% WATER 50 ML IV SCH ×2 (17:28→23:20)
[2019-03-22] MEDS: FOLIC ACID/VITAMIN B COMP W-C TABLET PO SCH (17:28)
[2019-03-22] MEDS ORDERED: MORPHINE SULFATE 2 MG/ML CPJ (NOT FOR IM USE) IV PRN (20:30)
[2019-03-23] VITALS (85 sets, daily range): BP systolic 101–131; BP diastolic 43–88
[2019-03-23] MEDS: IPRATROPIUM/ALBUTEROL 0.5-3(2.5)MG/3ML NEB HHN SCH ×6 (00:30→19:49)
[2019-03-23] MEDS: DIPHENHYDRAMINE 50MG/ML VIAL IV PRN (03:35)
[2019-03-23] MEDS: PIPERACILLIN/TAZOBACTAM 2.25 G in DEXTROSE 5% WATER 50 ML IV SCH ×3 (05:21→17:07)
[2019-03-23] MEDS: METOCLOPRAMIDE HCL 10MG/2ML VIAL IV SCH ×3 (05:21→17:08)
[2019-03-23 05:26] LABS: BASOPHILS % 0.6 % (0.0-2.0); EOSINOPHILS % 0.3 % (0.0-5.0); HEMATOCRIT. 32.2 % (36.0-48.0); HEMOGLOBIN. 10.2 g/dL (12.0-16.0); MEAN CORPUSCULAR HEMOGLOBIN 26.7 pg (28.0-32.0); MEAN CORPUSCULAR VOLUME 84.1 fL (81.0-99.0); MEAN PLATELET VOLUME 9.5 fl (7.4-10.4); MONOCYTES % 4.6 % (2.0-8.0); NEUTROPHILS % 79.5 % (40.0-76.0); PLATELET 162 x1000/uL (130-400); RED BLOOD CELL COUNT 3.83 mill/uL (4.2-5.4); RED CELL DISTRIBUTION WIDTH 25.1 % (11.6-14.6)
[2019-03-23 05:31] LABS: CHLORIDE 109 mEq/L (98-107)
[2019-03-23 05:38] LABS: PHOSPHORUS 3.7 mg/dL (2.5-4.9)
[2019-03-23] MEDS: DEXT 5%/0.9% NACL 1,000 ML IV SCH (06:03)
[2019-03-23] MEDS: DOBUTAMINE 250MG PREMIX 250 ML IV SCH ×2 (06:04→20:10)
[2019-03-23] MEDS ORDERED: LORAZEPAM 2MG/ML CPJ IV PRN (07:30)
[2019-03-23] MEDS ORDERED: ALBUMIN HUMAN 25GM/100ML (25%) IV NR (07:30)
[2019-03-23] MEDS ORDERED: FUROSEMIDE 40MG/4ML VIAL IVP NR (07:30)
[2019-03-23] MEDS: FAMOTIDINE 20MG/2ML VIAL IV SCH (09:13)
[2019-03-23] MEDS: FOLIC ACID 1MG TABLET PO SCH (09:13)
[2019-03-23] MEDS: FOLIC ACID/VITAMIN B COMP W-C TABLET PO SCH (09:13)
[2019-03-23] MEDS: THIAMINE HCL 100MG TABLET PO SCH (09:13)
[2019-03-23] MEDS: ASPIRIN 81MG EC TABLET PO SCH (09:13)
[2019-03-23] MEDS: ENOXAPARIN 30MG/0.3ML SYR SUBCUT SCH (09:14)
[2019-03-23] MEDS ORDERED: DEXTROSE 50% WATER 50ML SYRINGE IV PRN ×3 (09:15→09:30)
[2019-03-23] MEDS ORDERED: LEVOTHYROXINE SODIUM 50MCG TABLET NG SCH (09:15)
[2019-03-23 12:51] LABS: T4 FREE 1.28 ng/dL (0.76-1.46)
[2019-03-23 13:11] LABS: FOLIC ACID (FOLATE) SERUM > 20.00 ng/mL (>5.38); VITAMIN B12 SERUM > 2000.0 pg/mL (211-911)
[2019-03-23] MEDS ORDERED: MORPHINE SULFATE 2 MG/ML CPJ (NOT FOR IM USE) IV PRN (14:00)
[2019-03-23] MEDS: LEVETIRACETAM 500 MG in SODIUM CHLORIDE 0.9% 100 ML IV SCH ×2 (14:12→21:05)
== END 2019-03-23 22:15 | DRG 870 ==
LOC: ER 11:45 → CVICU 13:06 → EDBEDREQ 13:12 → EDBEDREQTM 13:12 → ENRESERV 13:56 → 3WST 03-17 19:00 → MICUSO 03-21 09:45
PROVIDERS: ADMIT Internal Medicine; ATTEND Internal Medicine
PROC: 5A1955Z Respiratory Ventilation, Greater than 96 Consecutive Hours (ICD-10-PCS; principal; 2019-03-12)
PROC: 0BH17EZ Insertion of Endotracheal Airway into Trachea, Via Natural or Artificial Opening (ICD-10-PCS; 2019-03-12)
PROC: 05HY33Z Insertion of Infusion Device into Upper Vein, Percutaneous Approach (ICD-10-PCS; 2019-03-12)
PROC: 5A09357 Assistance with Respiratory Ventilation, Less than 24 Consecutive Hours, Continuous Positive Airway Pressure (ICD-10-PCS; 2019-03-18)
PROC: 5A09457 Assistance with Respiratory Ventilation, 24-96 Consecutive Hours, Continuous Positive Airway Pressure (ICD-10-PCS; 2019-03-19)
PROC: 5A09457 Assistance with Respiratory Ventilation, 24-96 Consecutive Hours, Continuous Positive Airway Pressure (ICD-10-PCS; 2019-03-21)
PROC: 4A10X4Z Monitoring of Central Nervous Electrical Activity, External Approach (ICD-10-PCS; 2019-03-23)
DX: A41.9 Sepsis, unspecified organism (principal); R65.21 Severe sepsis with septic shock; J18.9 Pneumonia, unspecified organism; G93.41 Metabolic encephalopathy; I50.43 Acute on chronic combined systolic (congestive) and diastolic (congestive) heart failure; J96.01 Acute respiratory failure with hypoxia; I26.90 Septic pulmonary embolism without acute cor pulmonale; I63.511 Cerebral infarction due to unspecified occlusion or stenosis of right middle cerebral artery; E46 Unspecified protein-calorie malnutrition; E87.1 Hypo-osmolality and hyponatremia; R18.8 Other ascites; I13.0 Hypertensive heart and chronic kidney disease with heart failure and stage 1 through stage 4 chronic kidney disease, or unspecified chronic kidney disease; I42.0 Dilated cardiomyopathy; J44.0 Chronic obstructive pulmonary disease with (acute) lower respiratory infection; B37.49 Other urogenital candidiasis; I69.354 Hemiplegia and hemiparesis following cerebral infarction affecting left non-dominant side; N17.9 Acute kidney failure, unspecified; C80.1 Malignant (primary) neoplasm, unspecified; E03.9 Hypothyroidism, unspecified; E86.0 Dehydration; E87.5 Hyperkalemia; N18.3 Chronic kidney disease, stage 3 (moderate); K74.60 Unspecified cirrhosis of liver; K21.9 Gastro-esophageal reflux disease without esophagitis; D64.9 Anemia, unspecified; I65.21 Occlusion and stenosis of right carotid artery; I27.20 Pulmonary hypertension, unspecified; E16.2 Hypoglycemia, unspecified; E83.39 Other disorders of phosphorus metabolism; G89.29 Other chronic pain; I08.1 Rheumatic disorders of both mitral and tricuspid valves; I25.10 Atherosclerotic heart disease of native coronary artery without angina pectoris; I25.5 Ischemic cardiomyopathy; I48.91 Unspecified atrial fibrillation; R62.7 Adult failure to thrive; Z86.19 Personal history of other infectious and parasitic diseases; Z95.810 Presence of automatic (implantable) cardiac defibrillator; Z86.711 Personal history of pulmonary embolism; Z86.79 Personal history of other diseases of the circulatory system; Z88.6 Allergy status to analgesic agent; Z88.5 Allergy status to narcotic agent; Z86.718 Personal history of other venous thrombosis and embolism; I25.2 Old myocardial infarction; Z78.1 Physical restraint status; Z68.22 Body mass index [BMI] 22.0-22.9, adult
CPT/HCPCS: 36415; 36600; 70551; 71045; 71250; 74018; 74176; 76604; 76705; 76770; 80048; 80202; 80305; 80320; 81003; 82043; 82140; 82150; 82375; 82550; 82553; 82570; 82607; 82746; 82805; 82962; 83036; 83605; 83735; 83880; 83935; 84100; 84145; 84300; 84439; 84443; 84481; 84484; 86850; 86900; 87070; 87804; 92610; 93005; 93306; 93880; 93970; 94002; 94003; 94640; 94660; 96365; 97110; 97162; 97167; 99291; A6261; J0330; J1200; J1250; J1450; J1650; J1940; J1953; J1956; J2060; J2248; J2250; J2270; J2405; J2543; J2765; J2930; J3010; J3370; J3475; J3490; J7030; J7040; J7042; J7050; J7060; J7070; J7620; P9047; A4315; G0480